=== PATIENT | male | born 1980 | race Caucasian/White ===

== ENCOUNTER 2017-01-22 14:33 | Emergency (ER) | payer MEDICAID, OTHER ==
[~2017-01-22] VITALS: Ht 185.4 cm; Wt 78.4 kg
[~2017-01-22 14:33] MED LIST: BUPRPOW2; SUBOXONE
[2017-01-22] MEDS ORDERED: SMZ/TMP (14:48)
[2017-01-22] MEDS ORDERED: CEFTAROLINE FOSAMIL 600 MG in D5W MINI-BAG PLUS 50 ML IV ONE (15:45)
[2017-01-22] MEDS ORDERED: ONDANSETRON 4MG/2ML VIAL (J2405) IV ONE (15:45)
[2017-01-22] MEDS ORDERED: MORPHINE 10 MG/ML 1ML VIAL IV ONE (15:45)
[2017-01-22 16:41] LABS: ALBUMIN 3.2 GM/DL (3.2-5.2); ALBUMIN/GLOBULIN RATIO 0.84 (1.00-1.93); ALKALINE PHOSPHATASE 67 U/L (45-117); ALT/SGPT 11 U/L (12-78); ANION GAP 6 MEQ/L (8-16); AST/SGOT 9 U/L (15-37); BILIRUBIN,DIRECT 0.1 MG/DL (0.0-0.2); BILIRUBIN,TOTAL 0.3 MG/DL (0.2-1.0); BLOOD UREA NITROGEN 6 MG/DL (7-18); CALCIUM LEVEL 8.6 MG/DL (8.5-10.1); CARBON DIOXIDE LEVEL 31 MEQ/L (21-32); CHLORIDE LEVEL 103 MEQ/L (98-107); GLOMERULAR FILTRATION RATE > 60.0 (>60); GLUCOSE, FASTING 111 MG/DL (70-105); SODIUM LEVEL 140 MEQ/L (136-145)
[2017-01-22 16:45] LABS: ERYTHROCYTE SEDIMENTATION RATE 58 mm/hr (0-15)
[2017-01-22 17:46] LABS: BASO % 0.3 % (0.0-1.0); EOS # 0.1 K/mm3 (0.0-0.50); EOS % 0.9 % (0.0-3.0); LARGE UNSTAINED CELL # 0.1 K/mm3 (0.0-0.4); LARGE UNSTAINED CELL % 0.9 % (0.0-4.0); LYMPH # 2.1 K/mm3 (1.5-4.5); MEAN CORPUSCULAR HEMOGLOBIN 30.3 pg (27.0-33.0); MEAN CORPUSCULAR HGB CONC 33.5 g/dl (32.0-36.5); MEAN CORPUSCULAR VOLUME 90.4 fl (80.0-96.0); MONO % 6.5 % (0.0-5.0); NEUTROPHILS # 11.8 K/mm3 (1.8-7.7); NEUTROPHILS % 78.5 % (36.0-66.0); PLATELET COUNT, AUTOMATED 383 k/mm3 (150-450); RED CELL DISTRIBUTION WIDTH 12.5 % (11.5-14.5); WHITE BLOOD COUNT 15.1 K/mm3 (4.0-10.0)
--- NOTE | 2017-01-22 17:55 | REP ---
ULTRASOUND LEFT FOREARM: Real-time sonographic evaluation of the left mid forearm performed. There is diffuse edema. In addition, complex fluid is seen measuring 5.6 x 2.1 x 4.6 cm. This may represent an abscess. Signed by Sherwin Hassan MD 01/22/2017 08:22 P
[2017-01-22] MEDS ORDERED: LIDOCAINE W/EPINEPHRINE 1% 20ML VIAL As Ordered ONE (18:14)
[2017-01-22] MEDS ORDERED: LIDOCAINE W/EPINEPHRINE 1% 20ML VIAL SC ONE (18:15)
[2017-01-22 18:38] VITALS: BP 137/77
[2017-01-22] MEDS ORDERED: OXYC-517 PO (18:43)
[2017-01-22] MEDS ORDERED: NAPR500T PO (18:43)
[2017-01-22] MEDS ORDERED: NORCO, ANEXSIA 5/325MG TABLET (HYDROcodone/ACETAMINOPHEN) PO ONE (18:45)
--- NOTE | 2017-01-23 17:01 | HPE ---
DATE OF ADMISSION: 01/22/2017 CHIEF COMPLAINT: Left arm abscess. HISTORY OF PRESENT ILLNESS: The patient is a 36-year-old male presents with presents with left arm abscess that he has had for just over a week and half he went to the [facility] week ago and was started on antibiotics. However, he has had increase in redness, pain, and swelling. Extending into the medial side of the elbow and up into the biceps because this, he went back to [facility] today. He went in to [facility] today 01/22/2017 and still had redness and swelling and they were hesitant to do any procedure because of the large size of it. He was unhappy with the care there so he left against medical advice (AMA) and came over to [facility]. In the emergency room (ER) he was an ultrasound done confirming it was an abscess and he was planned to be admitted to medicine to have interventional radiology (IR) do a drainage of this however, for some reason I was walking through the ER and they asked me to evaluate. On exam, he has a very large abscess left anterior forearm with fluctuance. No active drainage currently. I have explained him that we can do the procedure right there and he agreed. He has had one other abscess in the past the right antecubital fossa likely secondary to a history of intravenous (IV) drug abuse. However, since being diagnosed with hepatitis C 3 months ago he has not done any more drugs. PAST MEDICAL HISTORY: Hepatitis C. PAST SURGICAL HISTORY: Right arm incision and drainage. ALLERGIES: None. HOME MEDICATIONS: None. SOCIAL HISTORY: Smokes pack a day. Denies any current drug or tobacco abuse. FAMILY HISTORY: Noncontributory. REVIEW OF SYSTEMS: Per positives in history of present illness. PHYSICAL EXAMINATION: GENERAL: Alert and oriented times three. No acute distress. VITALS: Temperature 98.6, pulse 87, respirations 18, blood pressure 137/77, pulse ox 99% room air. HEENT: Pupils equal round react to light accommodation. HEART: S1-S2 regular rhythm. LUNGS: Clear auscultation bilaterally. ABDOMEN: Soft, nontender, nondistended. EXTREMITIES: There is a large right greater than 10 cm abscess on the left anterior forearm with fluctuance noted over the midline. The erythema is spreading over the medial arm. LABORATORY DATA: White count 15.1. Hemoglobin 13.2, platelets 383. Potassium 4. IMAGING STUDIES: Ultrasound shows complex fluid measuring 5.6 x 2.1 x 4.6 cm. ASSESSMENT/PLAN: Patient is a 36-year-old male with a large left forearm abscess that he has had for over a week and a half. Has failed outpatient therapy with Bactrim and presents today with a very large area of redness and fluctuance. RECOMMENDATIONS: To proceed with incision and drainage here in the emergency room. Risks and benefits of the procedure not limited to but including bleeding, infection, need for further procedure were discussed in detail with the patient. Informed consent was obtained. Nurses were present in the room during consent. He signed consent and procedure was planned. The left forearm was sterilely prepped and draped with Betadine. Next, 5 mL of 1% lidocaine with epi was injected in the skin subcutaneous tissue overlying the most fluctuant portion of the abscess. Once that was completed, a 15 blade scalpel was used to make a 2 cm incision. Once this was completed, a large amount of what appeared to be infected hematoma and some purulent drainage were removed from this abscess cavity. The cavity was carefully explored using a cotton tipped applicator to break up any loculations and look for any sinus tracts. Once this was completed, it was irrigated out with normal saline. The wound was then packed with about 10 inches of half inch iodoform packing. It was then covered with 4x4s and the arm was wrapped in Kerlix. The patient tolerated the procedure well. He was discharged home from the emergency room soon after. He has another 8 days left of his Bactrim course that he was already started. He was advised to continue to stay on that remove the packing and change it at least one a day and call my office if there is any questions.
== END 2017-01-22 18:50 | disposition home or self-care (01) ==
LOC: M ED 15:10
DX: L03.114 Cellulitis of left upper limb (principal); B19.20 Unspecified viral hepatitis C without hepatic coma; F12.10 Cannabis abuse, uncomplicated; F17.200 Nicotine dependence, unspecified, uncomplicated

== ENCOUNTER 2018-02-26 17:17 | Inpatient (IN) | payer OTHER ==
[2018-02-26 20:31] LABS: HEMATOCRIT 41.7 % (42.0-52.0); HEMOGLOBIN 13.8 g/dl (13.5-17.5); MEAN CORPUSCULAR HEMOGLOBIN 29.6 pg (27.0-33.0); MEAN CORPUSCULAR HGB CONC 33.1 g/dl (32.0-36.5); MEAN CORPUSCULAR VOLUME 89.3 fl (80.0-96.0); PLATELET COUNT, AUTOMATED 281 10^3/uL (150-450); RED BLOOD COUNT 4.67 10^6/uL (4.30-6.10); RED CELL DISTRIBUTION WIDTH 12.6 % (11.5-14.5); WHITE BLOOD COUNT 11.3 10^3/uL (4.0-10.0)
[2018-02-26 20:57] LABS: ALBUMIN 3.6 GM/DL (3.2-5.2); ALBUMIN/GLOBULIN RATIO 1.03 (1.00-1.93); ALKALINE PHOSPHATASE 83 U/L (45-117); ALT/SGPT 20 U/L (12-78); ANION GAP 9 MEQ/L (8-16); AST/SGOT 16 U/L (7-37); BILIRUBIN,DIRECT < 0.1 MG/DL (0.0-0.2); BILIRUBIN,TOTAL 0.4 MG/DL (0.2-1.0); BLOOD UREA NITROGEN 23 MG/DL (7-18); CALCIUM LEVEL 8.6 MG/DL (8.5-10.1); CARBON DIOXIDE LEVEL 27 MEQ/L (21-32); CHLORIDE LEVEL 102 MEQ/L (98-107); CPK CREATINE PHOSPHOKINASE 188 U/L (39-308); CREATININE FOR GFR 1.15 MG/DL (0.70-1.30); GLOMERULAR FILTRATION RATE > 60.0 (>60); GLUCOSE, FASTING 149 MG/DL (70-100); POTASSIUM SERUM 4.6 MEQ/L (3.5-5.1); SODIUM LEVEL 138 MEQ/L (136-145); THYROID STIMULATING HORMONE 0.849 uIU/ML (0.358-3.740); TOTAL PROTEIN 7.1 GM/DL (6.4-8.2)
[2018-02-26 21:05] LABS: ACETAMINOPHEN LEVEL < 2.0 UG/ML (10.0-30.0); ETHYL ALCOHOL (ETHANOL) < 0.003 % (0.000-0.010)
[2018-02-26 21:53] LABS: AMPHETAMINES LEVEL URINE POSITIVE (NEGATIVE); BARBITURATES URINE NEGATIVE (NEGATIVE); BENZODIAZEPINES URINE NEGATIVE (NEGATIVE); CANNABINOIDS URINE NEGATIVE (NEGATIVE); COCAINE METABOLITE URINE NEGATIVE (NEGATIVE); METHADONE URINE NEGATIVE (NEGATIVE); OPIATES URINE POSITIVE (NEGATIVE); PHENCYCLIDINE URINE NEGATIVE (NEGATIVE)
[2018-02-26] MEDS ORDERED: MOM 30ML SUSPENSION UDC PO (23:15)
[2018-02-26] MEDS ORDERED: ACETAMINOPHEN TAB 650MG DOSE (2X325MG) PO (23:15)
[2018-02-26] MEDS ORDERED: HALOPERIDOL 5 MG TAB PO (23:15)
[2018-02-26] MEDS ORDERED: MAALOX 30 ML SUSP *UDC PO (23:15)
[2018-02-27] MEDS: LORazepam 1 MG TAB PO (01:01)
[2018-02-27] MEDS: traZODone 50 MG TAB PO (01:01)
[2018-02-27] MEDS: NICOTINE 21MG/24HR 1 EA TRANSDERMAL TD (15:39)
[2018-02-27] MEDS: QUEtiapine FUMARATE 100 MG TAB PO (21:24)
[2018-02-28] MEDS: NICOTINE 21MG/24HR 1 EA TRANSDERMAL TD ×2 (09:00→14:33)
[2018-02-28] MEDS: QUEtiapine FUMARATE 100 MG TAB PO (21:03)
[2018-03-01] MEDS: NICOTINE 21MG/24HR 1 EA TRANSDERMAL TD (08:24)
[2018-03-01] MEDS: QUEtiapine FUMARATE 200 MG TAB PO (20:11)
[2018-03-02] MEDS: NICOTINE 21MG/24HR 1 EA TRANSDERMAL TD (13:45)
[2018-03-02] MEDS: cloNIDine 0.2 MG TAB PO (20:10)
[2018-03-03] MEDS: NICOTINE 21MG/24HR 1 EA TRANSDERMAL TD (08:55)
[2018-03-03] MEDS: traZODone 50 MG TAB PO (20:04)
[2018-03-04] MEDS: NICOTINE 21MG/24HR 1 EA TRANSDERMAL TD (09:00)
[2018-03-04] MEDS: LORazepam 1 MG TAB PO (17:49)
[2018-03-04] MEDS: MIRTAZAPINE 15 MG TAB PO (20:31)
[2018-03-04] MEDS: traZODone 50 MG TAB PO (20:31)
[2018-03-05] MEDS: NICOTINE 21MG/24HR 1 EA TRANSDERMAL TD (08:42)
== END 2018-03-05 15:00 | DRG 751 ==
LOC: M PSY 02-27 00:47 → M ED 17:17 → M ED INP 21:32
DX: F33.3 Major depressive disorder, recurrent, severe with psychotic symptoms (principal); R45.851 Suicidal ideations; Z79.899 Other long term (current) drug therapy; Z91.5 Personal history of self-harm; F17.210 Nicotine dependence, cigarettes, uncomplicated; D72.829 Elevated white blood cell count, unspecified; B19.20 Unspecified viral hepatitis C without hepatic coma

== ENCOUNTER 2018-05-14 00:27 | Inpatient (IN) | payer OTHER ==
[2018-05-14] MEDS ORDERED: ACETAMINOPHEN TAB 650MG DOSE (2X325MG) PO (01:15)
[2018-05-14] MEDS ORDERED: MOM 30ML SUSPENSION UDC PO (01:15)
[2018-05-14] MEDS ORDERED: MAALOX 30 ML SUSP *UDC PO (01:15)
[2018-05-14] MEDS: traZODone 50 MG TAB PO (02:39)
[2018-05-14] MEDS: NICOTINE 21MG/24HR 1 EA TRANSDERMAL TD (09:00)
[2018-05-15] MEDS: NICOTINE 21MG/24HR 1 EA TRANSDERMAL TD (09:00)
[2018-05-15] MEDS: OLANZapine 10 MG TAB PO (21:00)
[2018-05-16] MEDS: NICOTINE 21MG/24HR 1 EA TRANSDERMAL TD (09:00)
[2018-05-16] MEDS: traZODone 50 MG TAB PO (20:04)
[2018-05-16] MEDS: OLANZapine 10 MG TAB PO (20:04)
[2018-05-17] MEDS: NICOTINE 21MG/24HR 1 EA TRANSDERMAL TD (08:47)
[2018-05-17] MEDS: OLANZapine 10 MG TAB PO (20:26)
[2018-05-17] MEDS: traZODone 50 MG TAB PO (20:27)
[2018-05-18] MEDS: NICOTINE 21MG/24HR 1 EA TRANSDERMAL TD (09:00)
[2018-05-18] MEDS: GABAPENTIN 300 MG CAP PO ×2 (16:39→20:22)
[2018-05-18] MEDS: OLANZapine 10 MG TAB PO (20:22)
[2018-05-18] MEDS: traZODone 50 MG TAB PO (20:22)
[2018-05-19] MEDS: NICOTINE 21MG/24HR 1 EA TRANSDERMAL TD (09:00)
[2018-05-19] MEDS: GABAPENTIN 300 MG CAP PO ×4 (09:36→20:25)
[2018-05-19] MEDS: traZODone 50 MG TAB PO (20:25)
[2018-05-19] MEDS: OLANZapine 10 MG TAB PO (20:25)
[2018-05-20] MEDS: NICOTINE 21MG/24HR 1 EA TRANSDERMAL TD (09:00)
[2018-05-20] MEDS: GABAPENTIN 300 MG CAP PO ×2 (09:13→12:52)
== END 2018-05-20 14:25 | disposition home or self-care (01) | DRG 751 ==
LOC: M ED 00:27 → M ED INP 01:13 → M PSY 02:03
DX: F33.9 Major depressive disorder, recurrent, unspecified (principal); R45.851 Suicidal ideations; F11.90 Opioid use, unspecified, uncomplicated; F12.90 Cannabis use, unspecified, uncomplicated; F14.90 Cocaine use, unspecified, uncomplicated; F15.90 Other stimulant use, unspecified, uncomplicated; Z59.0 Homelessness; B18.2 Chronic viral hepatitis C; F41.9 Anxiety disorder, unspecified; F17.200 Nicotine dependence, unspecified, uncomplicated

== ENCOUNTER 2018-07-20 23:07 | Inpatient (IN) | payer OTHER ==
[2018-07-21 01:11] LABS: MEAN CORPUSCULAR HGB CONC 32.6 g/dl (32.0-36.5); PLATELET COUNT, AUTOMATED 192 10^3/uL (150-450); RED BLOOD COUNT 5.17 10^6/uL (4.30-6.10); RED CELL DISTRIBUTION WIDTH 12.6 % (11.5-14.5); WHITE BLOOD COUNT 7.2 10^3/uL (4.0-10.0)
[2018-07-21] MEDS: hydrOXYzine 50 MG TAB PO (01:14)
[2018-07-21 01:48] LABS: ACETAMINOPHEN LEVEL < 2.0 UG/ML (10.0-30.0); ALBUMIN 3.2 GM/DL (3.2-5.2); ALBUMIN/GLOBULIN RATIO 0.91 (1.00-1.93); ALKALINE PHOSPHATASE 83 U/L (45-117); ALT/SGPT 12 U/L (12-78); ANION GAP 7 MEQ/L (8-16); AST/SGOT 13 U/L (7-37); BILIRUBIN,DIRECT < 0.1 MG/DL (0.0-0.2); BILIRUBIN,TOTAL 0.2 MG/DL (0.2-1.0); BLOOD UREA NITROGEN 10 MG/DL (7-18); CARBON DIOXIDE LEVEL 29 MEQ/L (21-32); CHLORIDE LEVEL 105 MEQ/L (98-107); CREATININE FOR GFR 0.91 MG/DL (0.70-1.30); ETHYL ALCOHOL (ETHANOL) < 0.003 % (0.000-0.010); GLOMERULAR FILTRATION RATE > 60.0 (>60); GLUCOSE, FASTING 115 MG/DL (70-100); POTASSIUM SERUM 4.4 MEQ/L (3.5-5.1); SALICYLATE LEVEL 2.7 MG/DL (5.0-30.0); SODIUM LEVEL 141 MEQ/L (136-145); TOTAL PROTEIN 6.7 GM/DL (6.4-8.2)
[2018-07-21 02:07] LABS: AMPHETAMINES LEVEL URINE NEGATIVE (NEGATIVE); BARBITURATES URINE NEGATIVE (NEGATIVE); BENZODIAZEPINES URINE NEGATIVE (NEGATIVE); CANNABINOIDS URINE POSITIVE (NEGATIVE); COCAINE METABOLITE URINE NEGATIVE (NEGATIVE); METHADONE URINE NEGATIVE (NEGATIVE); OPIATES URINE POSITIVE (NEGATIVE); PHENCYCLIDINE URINE NEGATIVE (NEGATIVE)
[2018-07-21] MEDS ORDERED: OLANZapine 5 MG TAB PO (02:45)
[2018-07-21] MEDS ORDERED: MAALOX 30 ML SUSP *UDC PO (02:45)
[2018-07-21] MEDS ORDERED: MOM 30ML SUSPENSION UDC PO (02:45)
[2018-07-21] MEDS ORDERED: traZODone 50 MG TAB PO (02:45)
[2018-07-21] MEDS: GABAPENTIN 100 MG CAP PO ×2 (16:00→21:00)
[2018-07-21] MEDS: OLANZapine 5 MG TAB PO (18:35)
[2018-07-21] MEDS: METHADONE 10 MG TAB (S0109) PO (21:00)
[2018-07-21] MEDS: MIRTAZAPINE 15 MG TAB PO (21:00)
[2018-07-22] MEDS: GABAPENTIN 100 MG CAP PO ×3 (08:12→20:34)
[2018-07-22] MEDS: METHADONE 10 MG TAB (S0109) PO ×3 (08:12→20:33)
[2018-07-22 16:25] LABS: HEPATITIS A ANTIBODY IGM NEGATIVE (NEGATIVE); HEPATITIS B CORE ANTIBODY IGM NEGATIVE (NEGATIVE); HEPATITIS B SURFACE ANTIGEN NEGATIVE (NEGATIVE)
[2018-07-22 16:26] LABS: HEPATITIS C VIRUS ABY INDEX > 11.0 INDEX (<0.8)
[2018-07-22] MEDS: MIRTAZAPINE 15 MG TAB PO (20:33)
[2018-07-22] MEDS: ACETAMINOPHEN TAB 650MG DOSE (2X325MG) PO (22:14)
[2018-07-23] MEDS: ACETAMINOPHEN TAB 650MG DOSE (2X325MG) PO (07:43)
[2018-07-23] MEDS: GABAPENTIN 100 MG CAP PO ×3 (07:43→20:08)
[2018-07-23] MEDS: METHADONE 10 MG TAB (S0109) PO ×2 (07:44→20:08)
[2018-07-23] MEDS: CHLORHEXIDINE GLUCONATE 0.12 % 15ML UDC (PERIDEX ORAL RINSE) MT ×4 (10:44→20:07)
[2018-07-23] MEDS: IBUPROFEN 800 MG TAB PO (11:09)
[2018-07-23] MEDS: MIRTAZAPINE 15 MG TAB PO (20:08)
[2018-07-24] MEDS: GABAPENTIN 100 MG CAP PO ×3 (08:08→20:28)
[2018-07-24] MEDS: CHLORHEXIDINE GLUCONATE 0.12 % 15ML UDC (PERIDEX ORAL RINSE) MT ×4 (08:08→20:29)
[2018-07-24] MEDS: METHADONE 10 MG TAB (S0109) PO ×2 (08:09→20:28)
[2018-07-24 10:48] LABS: HEPATITIS B CORE ANTIBODY IGM NEGATIVE (NEGATIVE); HEPATITIS B SURFACE ANTIBODY NEGATIVE (POSITIVE); HEPATITIS B SURFACE ANTIGEN NEGATIVE (NEGATIVE)
[2018-07-24 10:57] LABS: HEPATITIS C VIRUS ABY INDEX > 11.0 INDEX (<0.8)
[2018-07-24] MEDS: MIRTAZAPINE 15 MG TAB PO (20:28)
[2018-07-25] MEDS: GABAPENTIN 100 MG CAP PO ×3 (08:19→20:31)
[2018-07-25] MEDS: CHLORHEXIDINE GLUCONATE 0.12 % 15ML UDC (PERIDEX ORAL RINSE) MT ×4 (08:19→20:31)
[2018-07-25] MEDS: METHADONE 10 MG TAB (S0109) PO (08:20)
[2018-07-25] MEDS: MIRTAZAPINE 15 MG TAB PO (20:31)
[2018-07-25] MEDS: IBUPROFEN 800 MG TAB PO (20:31)
[2018-07-25] MEDS: OLANZapine 5 MG TAB PO (20:31)
[2018-07-26] MEDS: GABAPENTIN 100 MG CAP PO ×3 (08:14→20:05)
[2018-07-26] MEDS: METHADONE 10 MG TAB (S0109) PO (08:14)
[2018-07-26] MEDS: CHLORHEXIDINE GLUCONATE 0.12 % 15ML UDC (PERIDEX ORAL RINSE) MT ×4 (08:14→20:05)
[2018-07-26 08:21] LABS: HCV RNA NAA QUALITATIVE Negative (Negative)
[2018-07-26] MEDS: MIRTAZAPINE 15 MG TAB PO (20:05)
[2018-07-26] MEDS: OLANZapine 5 MG TAB PO (20:07)
[2018-07-27 00:26] LABS: ALPHA 2-MACROGLOBULIN 132 mg/dL (110-276); ALT 8 IU/L (0-55); APOLIPOPROTEIN A-1 84 mg/dL (101-178); FIBROSIS SCORE 0.03 (0.00-0.21); GGT 12 IU/L (0-65); HAPTOGLOBIN 233 mg/dL (34-200); HEPATITIS B CORE ANTIBODY IGG Negative (Negative); HEPATITIS C QUANTITATION HCV Not Detected IU/mL (.); NECROINFLAM SCORE 0.01 (0.00-0.17); NECROINFLAMM GRADE A0-No activity (.); TOTAL BILIRUBIN 0.1 mg/dL (0.0-1.2)
[2018-07-27] MEDS: GABAPENTIN 100 MG CAP PO ×3 (08:29→20:16)
[2018-07-27] MEDS: CHLORHEXIDINE GLUCONATE 0.12 % 15ML UDC (PERIDEX ORAL RINSE) MT ×5 (08:29→20:16)
[2018-07-27] MEDS: HALOPERIDOL 5 MG TAB PO (20:16)
[2018-07-27] MEDS: MIRTAZAPINE 15 MG TAB PO (20:16)
[2018-07-27] MEDS: OLANZapine 5 MG TAB PO (20:16)
[2018-07-28] MEDS: GABAPENTIN 100 MG CAP PO ×3 (08:39→20:42)
[2018-07-28] MEDS: CHLORHEXIDINE GLUCONATE 0.12 % 15ML UDC (PERIDEX ORAL RINSE) MT ×4 (08:39→21:00)
[2018-07-28] MEDS: OLANZapine 5 MG TAB PO (20:42)
[2018-07-28] MEDS: HALOPERIDOL 5 MG TAB PO (20:42)
[2018-07-28] MEDS: MIRTAZAPINE 15 MG TAB PO (20:42)
[2018-07-29] MEDS: GABAPENTIN 100 MG CAP PO (07:40)
[2018-07-29] MEDS: CHLORHEXIDINE GLUCONATE 0.12 % 15ML UDC (PERIDEX ORAL RINSE) MT (07:42)
== END 2018-07-29 08:20 | DRG 753 ==
LOC: M ED 23:07 → M ED INP 07-21 02:37 → M PSY 07-21 05:18
DX: F39 Unspecified mood [affective] disorder (principal); R45.851 Suicidal ideations; F19.94 Other psychoactive substance use, unspecified with psychoactive substance-induced mood disorder; F11.90 Opioid use, unspecified, uncomplicated; B18.2 Chronic viral hepatitis C; F17.200 Nicotine dependence, unspecified, uncomplicated

== ENCOUNTER 2021-07-27 14:36 | Inpatient (IN) | payer OTHER ==
[~2021-07-27] VITALS: Ht 182.9 cm; Wt 78.9 kg
[~2021-07-27 14:36] MED LIST changes: +GABA-282 PO; +MIRT-60 PO; +MIRT30TA3 PO; +NAPR-837 PO; +OLAN1TAB20 PO; +OXYC-517 PO; +PATIENT COMMENTS; +SMZ/TMP; +TRAZ-252 PO; +TRAZ1TAB10 PO; +TRAZ1TAB14 PO
[2021-07-27 15:37] LABS: HEMATOCRIT 45.5 % (42.0-52.0); HEMOGLOBIN 14.6 g/dl (13.5-17.5); MEAN CORPUSCULAR HEMOGLOBIN 28.1 pg (27.0-33.0); MEAN CORPUSCULAR HGB CONC 32.1 g/dl (32.0-36.5); MEAN CORPUSCULAR VOLUME 87.7 fl (80.0-96.0); PLATELET COUNT, AUTOMATED 569 10^3/uL (150-450); RED BLOOD COUNT 5.19 10^6/uL (4.30-6.10); WHITE BLOOD COUNT 8.4 10^3/uL (4.0-10.0)
[2021-07-27 16:14] LABS: ACETAMINOPHEN LEVEL < 2.0 UG/ML (10.0-30.0); ALBUMIN 3.5 GM/DL (3.2-5.2); ALT/SGPT 20 U/L (12-78); AMPHETAMINES LEVEL URINE NEGATIVE (NEGATIVE); BARBITURATES URINE NEGATIVE (NEGATIVE); BENZODIAZEPINES URINE NEGATIVE (NEGATIVE); BILIRUBIN,DIRECT 0.1 MG/DL (0.0-0.2); BILIRUBIN,TOTAL 0.4 MG/DL (0.2-1.0); BLOOD UREA NITROGEN 12 MG/DL (7-18); CANNABINOIDS URINE POSITIVE (NEGATIVE); CARBON DIOXIDE LEVEL 26 MEQ/L (21-32); CHLORIDE LEVEL 105 MEQ/L (98-107); COCAINE METABOLITE URINE NEGATIVE (NEGATIVE); CREATININE FOR GFR 1.02 MG/DL (0.70-1.30); ETHYL ALCOHOL (ETHANOL) < 0.003 % (0.000-0.010); GLOMERULAR FILTRATION RATE > 60.0 (>60); GLUCOSE, FASTING 90 MG/DL (70-100); METHADONE URINE NEGATIVE (NEGATIVE); OPIATES URINE NEGATIVE (NEGATIVE); PHENCYCLIDINE URINE NEGATIVE (NEGATIVE); POTASSIUM SERUM 4.5 MEQ/L (3.5-5.1); SALICYLATE LEVEL 2.5 MG/DL (5.0-30.0); SODIUM LEVEL 138 MEQ/L (136-145); TOTAL PROTEIN 7.4 GM/DL (6.4-8.2)
[2021-07-27 16:20] LABS: RSV AMPLIFICATION NEGATIVE (NEGATIVE)
[2021-07-27] MEDS ORDERED: HOME MED LIST COMPLETE! XX SCH (21:25)
[2021-07-27] MEDS ORDERED: hydrOXYzine 25 MG TAB PO STA (23:09)
--- NOTE | 2021-07-28 06:44 | ECGEPIP ---
[facility] - ED Test Date: 2021-07-27 Pat Name: DARYA WILDER Department: Room: - Gender: Male Flap Curer: DIGNA : 1980 Requested By: ISRAEL Whittington Order Number: [id number] Reading MD: Naveed Carpenter Measurements Intervals [place] Rate: 62 P: 68 DC: 128 QRS: 52 QRSD: 88 T: 81 QT: 424 QTc: 430 Interpretive Statements Normal sinus rhythm Nonspecific T wave abnormality SIMILAR TO 02/27/18 Electronically Signed on 07-28-2021 6:44:00 EST by Naveed Carpenter
[2021-07-28] MEDS ORDERED: MAALOX 30 ML SUSP *UDC PO PRN (14:00)
[2021-07-28] MEDS ORDERED: MOM 30ML SUSPENSION UDC PO PRN (14:00)
[2021-07-28] MEDS ORDERED: ACETAMINOPHEN TAB 650MG DOSE (2X325MG) PO PRN (14:00)
[2021-07-28] MEDS ORDERED: traZODone 50 MG TAB PO PRN (14:00)
[2021-07-28 16:46] VITALS: BP 107/63
[2021-07-29] MEDS: GABAPENTIN 100 MG CAP PO SCH ×3 (09:00→21:05)
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
[2021-07-29] MEDS ORDERED: OLANZapine 5 MG TAB PO PRN (10:40)
[2021-07-29] MEDS ORDERED: hydrOXYzine 50 MG TAB PO PRN (10:40)
[2021-07-29] MEDS: buPROPion 100 MG TAB PO SCH (12:20)
--- NOTE | 2021-07-29 16:15 | HPEPDOC ---
[facility] Medical History & Physical Date of Admission Jul 29, 2021 Date of Service: Jul 29, 2021 History and Physical CHIEF COMPLAINT: "I was feeling depressed" HISTORY OF PRESENT ILLNESS: 41-year-old male presented to the emergency room department with complaints of depression and suicidal thoughts. He reported feeling sad, depressed, and having no purpose as well as feeling empty. He had thoughts of injecting fentanyl to end his life. Therefore came to the emergency room department for help. At this junction, he denied chest pain, shortness of breath, abdominal pain, nausea, vomiting, problems with urination or bowel movements. PAST MEDICAL HISTORY: Hepatitis C, unclear if it was treated PAST SURGICAL HISTORY: None reported SOCIAL HISTORY: Report smoking a pack per day. Last amphetamine use was at the beginning of the month. Denies alcohol use. FAMILY HISTORY: Mother: Hypertension ALLERGIES: Please see below. REVIEW OF SYSTEMS: 10 point review of system was negative except for what is noted in the HPI HOME MEDICATIONS: Please see below. PHYSICAL EXAMINATION: VITAL SIGNS: Please see below General: Lying in bed, no acute distress Head/Neck/Throat: Trachea midline, mucous membranes moist Eyes: Sclera anicteric, no erythema or discharge appreciated bilaterally Thorax: Normal respiratory effort on room air, lungs clear to auscultation bilaterally, no wheezes/rales/rhonchi Cardiovascular: Normal rate, regular rhythm, normal S1, S2; no S3, S4, rubs/gallops/murmurs Abdomen: Bowel sounds present, soft/nontender/nondistended Genitourinary: No CVA tenderness, no Graham in place Musculoskeletal: Moving all extremities, no edema Skin: Warm, dry. Needle track signs Neurologic: AAOx3, speech fluent and goal-directed, no focal deficits, grossly intact LABORATORY DATA: See below. IMAGING: No imaging to review at this time MICROBIOLOGY: Please see below. ASSESSMENT/PLAN: 41-year-old male presented emergency room department with complaints of depression and suicidal thoughts. #Depression -Deferred to psychiatry for management. #Nicotine dependence -Did not want a nicotine patch educated about quitting smoking. #Hepatitis C history -Encouraged to follow-up as an outpatient with gastroenterology, primary care physician, and/your infectious disease team to get treated #Thrombocytosis -He should have repeat blood work done with to ensure his platelets are within normal limits #DVT prophylaxis -Encourage ambulation Thank you for involving us in the care of this patient. Please reconsult if needed. Vital Signs Vital Signs Date Time Temp Pulse Resp B/P (MAP) Pulse Ox O2 Delivery O2 Flow Rate FiO2 07/28/21 16:46 96.8 82 18 107/63 (78) 98 Room Air Home Medications No Active Prescriptions or Reported Meds Allergies Coded Allergies: No Known Allergies (Unverified , 07/27/21) A-FIB/CHADSVASC A-FIB History Current/History of A-Fib/PAF?: No SURAJ GATES M.D. Jul 29, 2021 16:15
[2021-07-29 17:23] VITALS: BP 112/54
[2021-07-29] MEDS: traZODone 100 MG TAB PO SCH (21:05)
[2021-07-30 06:47] VITALS: BP 103/53
[2021-07-30 06:58] VITALS: BP 103/53
[2021-07-30 08:18] LABS: HEMATOCRIT 40.7 % (42.0-52.0); HEMOGLOBIN 13.1 g/dl (13.5-17.5); MEAN CORPUSCULAR HEMOGLOBIN 28.4 pg (27.0-33.0); MEAN CORPUSCULAR HGB CONC 32.2 g/dl (32.0-36.5); MEAN CORPUSCULAR VOLUME 88.3 fl (80.0-96.0); PLATELET COUNT, AUTOMATED 278 10^3/uL (150-450); RED BLOOD COUNT 4.61 10^6/uL (4.30-6.10); WHITE BLOOD COUNT 9.7 10^3/uL (4.0-10.0)
[2021-07-30] MEDS: buPROPion 100 MG TAB PO SCH (10:10)
[2021-07-30] MEDS: GABAPENTIN 100 MG CAP PO SCH ×3 (10:11→21:18)
[2021-07-30 18:42] VITALS: BP 125/72
[2021-07-30] MEDS: traZODone 100 MG TAB PO SCH (21:18)
[2021-07-31 06:19] VITALS: BP 105/67
[2021-07-31 06:27] VITALS: BP 112/56
[2021-07-31] MEDS: GABAPENTIN 100 MG CAP PO SCH ×3 (10:24→21:28)
[2021-07-31] MEDS: buPROPion 100 MG TAB PO SCH (10:25)
[2021-07-31 15:35] VITALS: BP 112/85
[2021-07-31] MEDS: traZODone 100 MG TAB PO SCH (21:28)
[2021-08-01 07:01] VITALS: BP 93/62
--- NOTE | 2021-08-01 09:27 | MHIPNPDOC ---
[facility] Progress Note Progress Note DATE OF SERVICE: 08/01/21 HISTORY: Patient is a 41-year-old male, unemployed and homeless who self presented to the ED with depression and suicidal thoughts, hopelessness, worthlessness endorsed SI with plan to overdose on fentanyl. Recent incarceration in [place]. Interval: Patient reports history of taking Wellbutrin for mood with good effect, reports dose was 150 mg also was taking trazodone and gabapentin, agreeable to increasing Wellbutrin 150 mg XL for mood and tobacco cessation, patient was negative for alcohol on admission. Patient remains on contact isolation in context of covid-19 positive testing. States mood is not significant improved since starting Wellbutrin 50 mg. VITAL SIGNS: See below. NEW TEST RESULTS: See below CURRENT MEDICATIONS: See below. MENTAL STATUS EXAMINATION: Patient is a 41-year old male, who is in no acute distress, appears stated age, glasses, thin Speech: Is intact Language skills are intact. Thought processes including: Linear, logical. Thought content: Depressed mood vague SI abstract reasoning, and computation: Fair Description of associations: Fair. Description of abnormal or psychotic thoughts: Denies, not observed Judgment: Poor. Insight: Fair. Orientation: x3 Recent and remote memory: Intact Attention span and concentration: Intact. Language: intact Fund of knowledge: Average. Mood: "Depressed" affect: Incongruent, euthymic, does smile at times, appropriate DIAGNOSES: 1. Major Depression Disorder, recurrent, without psychotic features. 2. Amphetamine use disorder per history 3. Opiate use disorder per history 4. Cocaine use disorder per history 5. Cannabis use disorder per history 6. Nicotine Use Disorder, moderate use 7. Hallucinogen use disorder per history ASSESSMENT: Patient agreeable to medication changes, continues to report depressed mood but has incongruent affect, states will work with social work to find a safe discharge plan as he is currently homeless. Possible discharge in the coming days if continues to improve and the longer endorses any suicidal ideation. MANAGEMENT PLAN: Patient continues to be on Covid precautions, increase Wellbutrin from 50 mg to 150 mg Xr for stimulant cravings, nicotine cravings, mood TIME SPENT: 20 minutes. Vital Signs Vital Signs Date Time Temp Pulse Resp B/P (MAP) Pulse Ox O2 Delivery O2 Flow Rate FiO2 08/01/21 07:01 98.6 67 18 93/62 (72) 98 Room Air Current Medications Current Medications Medications (Trade) Dose Ordered Sig/Giovanna Route PRN Reason Start Time Stop Time Status Last Admin Dose Admin Acetaminophen (Tylenol Tab) 650 mg Q6HP PRN PO HEADACHE or MILD DISCOMFORT 07/28/21 14:00 Al Hydrox/Mg Hydrox/Simethicone (Mylanta) 30 ml Q4HP PRN PO HEARTBURN/INDIGESTION 07/28/21 14:00 Bupropion HCl (Wellbutrin) 50 mg DAILY PO 07/29/21 09:00 07/31/21 10:25 Gabapentin (Neurontin) 100 mg TID PO 07/29/21 09:00 07/31/21 21:28 Home Med (Home Med List Complete!) ASDIRECTED XX 07/27/21 21:25 07/27/21 21:27 DC Hydroxyzine HCl (Atarax) 25 mg STAT STAT PO 07/27/21 23:09 07/27/21 23:11 DC 07/27/21 23:09 Hydroxyzine HCl (Atarax) 50 mg Q6HP PRN PO ANXIETY 07/29/21 10:40 Magnesium Hydroxide (Milk Of Magnesia) 30 ml DAILYPRN PRN PO CONSTIPATION 07/28/21 14:00 Olanzapine (ZyPREXA) 5 mg Q6HP PRN PO AGITATION 07/29/21 10:40 Trazodone HCl (Desyrel) 50 mg QHSP PRN PO INSOMNIA 07/28/21 14:00 07/29/21 10:42 DC 07/28/21 22:07 Trazodone HCl (Desyrel) 100 mg QHS PO 07/29/21 21:00 07/31/21 21:28 Allergies Coded Allergies: No Known Allergies (Unverified , 07/27/21) ZACARIAS ROGERS MD Aug 01, 2021 09:27
[2021-08-01] MEDS: GABAPENTIN 100 MG CAP PO SCH ×3 (09:55→20:31)
[2021-08-01] MEDS: buPROPion **XL** TABLET 150MG (WELLBUTRIN XL) PO SCH (09:55)
--- NOTE | 2021-08-01 13:17 | MHIPN ---
[facility], [facility] PROGRESS NOTE DATE: 07/30/2021 VITAL SIGNS: Blood pressure 125/72, pulse 74, temperature 97.9. CHIEF COMPLAINT: Says is doing okay. SUBJECTIVE: This is a video assessment, he is seen in the presence of staff, he is in the inpatient Psychiatric Unit, I am at home. We are doing this because of the COVID pandemic, and in fact he is COVID positive. He says he has been doing okay, but that he consistently has trouble with sleep, has experienced that even when he is not using methamphetamines, says is more of a problem if he does. Appetite is good, he feels it is paradoxically good when he uses amphetamines. He says he feels better since coming in, less depressed, less anxious, less inclination to taking his own life. MENTAL STATUS EXAM: Neat, cooperative, no agitation. No psychomotor retardation, he is coherent. Affect is fairly broad. No homicidal ideations or intents. Vague on suicidal thoughts, feels more confident today. No evidence of any psychosis. Cognition is grossly intact. Judgment and insight are compromised. ASSESSMENT: Major depressive disorder. Amphetamine use disorder. Opiate use disorder. Cannabis use disorder. PLAN: Continue current care, observations, encourage participation in activities as tolerated, but this is dependent also on his COVID status. We spoke about difficulties with sleep, and the associations with methamphetamine use. Further recommendations will be made depending on the clinical picture.
[2021-08-01 18:29] VITALS: BP 110/58
[2021-08-01] MEDS: traZODone 100 MG TAB PO SCH (20:31)
[2021-08-02 06:46] VITALS: BP 106/60
[2021-08-02] MEDS: buPROPion **XL** TABLET 150MG (WELLBUTRIN XL) PO SCH (08:53)
[2021-08-02] MEDS: GABAPENTIN 100 MG CAP PO SCH (08:53)
--- NOTE | 2021-08-02 15:29 | MHIPN ---
[facility] PROGRESS NOTE DATE: 07/31/2021 This is a video assessment. We are doing this because of the pandemic. He is in the inpatient unit. He is seen in the presence of staff. I am at home. VITAL SIGNS: Blood pressure 112/56, pulse 58, temperature 98.2. CHIEF COMPLAINT: Says could not sleep. SUBJECTIVE: Seen for followup. Indicates has been doing okay but had difficulty with sleep. Says is not sure if he was anxious but has had longstanding difficulties, which we had discussed, including secondary to amphetamine use, which is quite a possibility. Says otherwise appetite is okay, and he is feeling okay. MENTAL STATUS EXAMINATION: Neat, cooperative. No agitation. He is coherent. Affect restricted but reactive. No evidence of any thoughts of harming himself or anyone else. Currently no evidence of any psychosis. Cognition grossly intact. Judgment and insight possibly improved. ASSESSMENT: 1. Major depressive disorder. 2. Amphetamine use disorder. PLAN: Continue current care, observations. He will be seen by the assigned clinician tomorrow, when further recommendations will be made.
[2021-08-02] MEDS: GABAPENTIN 300 MG CAP PO SCH ×2 (15:45→22:03)
--- NOTE | 2021-08-02 17:26 | MHIPN ---
[facility] PROGRESS NOTE DATE: 08/02/2021 VITAL SIGNS: Temperature 98.3, pulse 81, respirations 16, blood pressure 106/60. CURRENT MEDICATION: - Wellbutrin XL 150 mg every morning - gabapentin 100 mg three times a day. - trazodone 100 mg at bedtime HISTORY OF PRESENT ILLNESS: This is a 41-year-old white male, unemployed, homeless, who presented to the emergency room feeling helpless, hopeless, and suicidal. The homelessness is a major precipitating stressor per the patient. Patient was feeling helpless and hopeless with suicidal preoccupation. Patient has had some legal issues recently. He was jailed in [place] for a methamphetamine charge as a felony. After being released from [facility], he returned home to [facility], where he apparently developed COVID symptoms. He had a sore throat and runny nose. He was diagnosed COVID positive at time of admission to the emergency room. Patient has been seen by Dr. Singh and is seen by me here today in his absence. Patient complains that he is still quite anxious despite being on the gabapentin. He is wanting to increase the dosage. He has been on higher doses in the past and tolerated them well. He also complains of some insomnia. It takes 2 hours for him to fall asleep at night. He has tolerated higher doses of trazodone well in the past as well. He is frustrated by the social isolation due to his COVID status but otherwise has been cooperative and has no other complaints. He states that his suicidal ideation has resolved, though he is still anxious about his homelessness. MENTAL STATUS EXAMINATION: Patient is alert and oriented. He is reasonably cooperative. Hygiene is marginal. Affect is flat. Patient reports depressed mood but with no current suicidal ideation. Patient denies any current psychotic thoughts. He reports being chronically paranoid but describes this as being secondary to his drug use. Insight is fair. Judgment appears poor and limited. Patient appears fully oriented. Memory functions appear intact. Concentration is fair. Language function is intact. Fund of knowledge is average. No current signs of irritability or dangerousness. DIAGNOSES: 1. Major depression, recurrent. 2. Polysubstance abuse. PLAN: Increase gabapentin to 300 mg three times a day. Increase trazodone to 150 mg at bedtime. No change in Wellbutrin XL dosage.
[2021-08-02 18:03] VITALS: BP 109/64
[2021-08-02] MEDS: traZODone 100 MG TAB PO SCH (22:03)
[2021-08-03 06:17] VITALS: BP 123/63
[2021-08-03 06:36] VITALS: BP 123/63
[2021-08-03] MEDS: buPROPion **XL** TABLET 150MG (WELLBUTRIN XL) PO SCH (08:43)
[2021-08-03] MEDS: GABAPENTIN 300 MG CAP PO SCH ×3 (08:43→20:59)
[2021-08-03 17:30] VITALS: BP 105/62
[2021-08-03] MEDS: traZODone 100 MG TAB PO SCH (20:59)
[2021-08-04 06:03] VITALS: BP 107/58
[2021-08-04] MEDS: GABAPENTIN 300 MG CAP PO SCH (09:41)
[2021-08-04] MEDS: buPROPion **XL** TABLET 150MG (WELLBUTRIN XL) PO SCH (09:41)
[2021-08-04] MEDS ORDERED: TRAZ-257 PO (11:25)
[2021-08-04] MEDS ORDERED: GABA-282 PO (11:25)
[2021-08-04] MEDS ORDERED: BUPR150T12 PO (11:25)
--- NOTE | 2021-08-04 13:00 | MHIPN ---
[facility] PROGR[facility] DATE: 08/03/2021 VITAL SIGNS: Temperature 97.6, pulse 63, respirations 16, blood pressure 123/63. CURRENT MEDICATIONS: - Wellbutrin XL 150 mg every morning. - gabapentin 300 mg three times a day - trazodone 150 mg at bedtime HISTORY OF PRESENT ILLNESS: This is a 41-year-old white male, unemployed, homeless, who presented to the emergency room feeling helpless, hopeless, and suicidal. Patient reports chronic anxiety, especially about his homelessness situation. He did find the medication change helpful. He is now on a higher dose of gabapentin, which appears to help reduce his anxiety symptoms. His trazodone dosage was increased last night with good effect. He fell asleep reasonably promptly and slept most of the night. Patient reports feeling more optimistic about the future. Patient denies any current craving for drugs. MENTAL STATUS EXAMINATION: The patient is alert, oriented, and cooperative. Hygiene remains marginal with flat affect. Patient reports his depression is improved. He denies any wish to harm himself or others. Patient is not psychotic. Insight appears fair. Judgment seems improved. Patient fully oriented. Memory functions intact. Concentration seems improved. Language functions intact. No current signs of impulsivity or dangerousness. DIAGNOSES: 1. Major depression, recurrent. 2. Polysubstance abuse. 3. Covid 19 PLAN: Continue present management. Staff working on discharge planning. SINDY
--- NOTE | 2021-08-04 16:20 | MHDS ---
[facility] DISCHARGE SUMMARY DATE OF ADMISSION: 07/28/2021 DATE OF DISCHARGE: 08/04/2021 VITAL SIGNS: Temperature 97.9, pulse 56, respirations 20, blood pressure 107/58. LABORATORY STUDIES: CBC and differential within normal limits except for hemoglobin low at 13.1 and hematocrit at 40.7. Serum chemistry within normal limits except for anion gap, which is low at 7. Toxicology: Urine screen negative except for positive screen for cannabinoids. DISCHARGE DIAGNOSES: 1. Major depression, recurrent. 2. Polysubstance abuse. 3. COVID-19. DISCHARGE MEDICATIONS: - Wellbutrin XL 150 mg in the morning - gabapentin 300 mg three times a day - trazodone 150 mg at bedtime CHIEF COMPLAINT: Depression with suicidal preoccupation. HISTORY OF PRESENT ILLNESS: This is a 41-year-old single, unemployed white male who presented to the emergency room with depression, suicidal thoughts. He had suicidal thoughts of getting a couple of bags of Fentanyl and shooting it up. Patient had recently been jailed in [place]. He returns to the [facility] with no employment and no housing and has financial stressors. Patient has a long psychiatric history with more than 10 psychiatric hospitalizations here at [facility]. PROGRESS ON THE UNIT: Patient was tested for COVID-19 and was found to be positive. He was placed in isolation. He was cooperative during the admission and the isolation protocol. Patient was restarted on his psychotropics. His gabapentin was increased from 100 up to 300 mg three times a day with good effect. This helped with his anxiety symptoms. The trazodone at the higher dosage also helped with insomnia. His mood improved. He was still worried about his future, but this was appropriate, given his homelessness. His anxiety symptoms seemed to be under better control. Suicidal ideation resolved completely. He had no wishes to hurt self or others. Patient was in good behavioral control. Patient will need to be in isolation for another 2-3 days after discharge and the [facility] will place him in isolation before his quarantine is resolved. Patient appeared to reach maximal hospital benefit. MENTAL STATUS EXAMINATION: At the time of discharge, patient was alert, oriented, cooperative. He had good eye contact. Affect was reasonably appropriate. No signs of depression. He was not homicidal or suicidal. Insight and judgment appeared recently good. Patient was not psychotic, not hearing voices. No paranoia or thought disorder. Cleanliness and hygiene were marginal with no signs of impulsivity or dangerousness. Cognitive functions appeared intact. ASSESSMENT: Patient appears to have reached maximal hospital benefit. Patient was agreeable to outpatient followup and to avoid substance use on discharge. PLAN: Discharge to the community with outpatient mental health services. Patient's discharge medications were transmitted to his local pharmacy.
== END 2021-08-04 14:45 | disposition home or self-care (01) | DRG 751 ==
LOC: M ED 14:36 → M ED INP 07-28 13:59 → M PSY 07-28 15:33
PROVIDERS: ADMIT Student in an Organized Health Care Education/Training Program; ATTEND Student in an Organized Health Care Education/Training Program
DX: F33.9 Major depressive disorder, recurrent, unspecified (principal); U07.1 COVID-19; R45.851 Suicidal ideations; F17.200 Nicotine dependence, unspecified, uncomplicated

== ENCOUNTER 2025-04-27 11:50 | Day surgery (SDC) | payer OTHER ==
[~2025-04-27] VITALS: Ht 190.5 cm; Wt 80.3 kg
[~2025-04-27 11:50] MED LIST changes: +BENA25CA4 PO; +BUPR150T12 PO; +GABA-1172 PO; -GABA-282 PO; -MIRT-60 PO; +MIRT-89 PO; +TRAZ-257 PO
[2025-04-27] MEDS ORDERED: ONDANSETRON 4MG 2ML VIAL As Ordered ONE (11:55)
[2025-04-27] MEDS ORDERED: LIDOCAINE 2% 100 MG/5 ML SDV (FOR ANES.) As Ordered ONE (11:55)
[2025-04-27] MEDS ORDERED: dexAMETHasone 4 MG/ML 1 ML VIAL As Ordered ONE (11:55)
[2025-04-27] MEDS ORDERED: KETOROLAC 30 MG/ML 1 ML VIAL As Ordered ONE (11:57)
[2025-04-27] MEDS ORDERED: LR 1,000 ML IV SCH (12:05)
[2025-04-27] MEDS ORDERED: MIDAZOLAM INJ 2 MG/2 ML VIAL As Ordered ONE (13:39)
[2025-04-27] MEDS ORDERED: ACETAMINOPHEN 1000MG/100ML IV BAG As Ordered ONE (14:33)
[2025-04-27] MEDS ORDERED: ONDANSETRON 4MG 2ML VIAL IV PRN (15:00)
[2025-04-27 15:55] VITALS: BP 113/68; TEMP 97.2; O2SAT 95
== END 2025-04-27 16:04 | disposition home or self-care (01) ==
LOC: M SDC 11:50
PROVIDERS: ATTEND Orthopaedic Surgery Hand Surgery
DX: G56.01 Carpal tunnel syndrome, right upper limb (principal); F17.210 Nicotine dependence, cigarettes, uncomplicated
CPT/HCPCS: 29848; J0131; J0665; J1100; J1885; J2250; J2405; J3010